=== PATIENT | male | born 1955 | race Caucasian/White ===

== ENCOUNTER 2016-06-18 12:55 | Emergency (ER) | payer SELFPAY ==
[~2016-06-18] VITALS: Ht 180.3 cm; Wt 78.0 kg
[2016-06-18 12:58] VITALS: BP 178/82; PULSE 78; RESP 16; TEMP 97.9; O2SAT 96
--- NOTE | 2016-06-18 13:22 | PD ---
HPI Chief Complaint: Headache Time Seen by Provider: 13:20 Travel History International Travel<30 days: No Contact w/Intl Traveler<30days: No Traveled to known affect area: No History of Present Illness HPI 60 -year-old male presents to the emergency department for evaluation of intermittent headaches that started this morning. He states he will get a sharp pain on each side of his head that'll last for seconds. He states the pain has brought him to his knees. He states that it comes and goes. She reports approximately 6 episodes this morning. He has no current pain. He denies any chest pain or shortness of breath. No abdominal pain. No vomiting. He denies any weakness or syncope. Patient denies history of headaches. He does report a history of esophageal cancer and lymphoma, but is in remission. He only takes Flomax for BPH. He denies any other complaints. He denies any seizure activity. PFSH Past Medical History Chemotherapy: Yes (esophageal cancer/lymphoma) Social History Alcohol Use: No Tobacco Use: No Substance Use: No Allergies-Medications (Allergen,Severity, Reaction): Coded Allergies: No Known Allergies (Unverified , 06/18/16) Reported Meds & Prescriptions Reported Meds & Active Scripts Active Reported Flomax (Tamsulosin HCl) 0.4 Mg Cap 0.4 Mg PO HS Review of Systems Except as stated in HPI: all other systems reviewed are Neg Physical Exam Narrative GENERAL: Well-developed well-nourished male patient, ambulatory and in no acute distress. Afebrile. SKIN: Warm and dry. HEAD: Normocephalic. Atraumatic. ENT: Mucosa pink and moist. No erythema or exudates. No uvular edema. No uvular , palatal, or tonsillar deviation. Airway patent. Nasal turbinates appear normal without nasal blood, purulent drainage or septal hematoma. Bilateral tympanic membranes are clear without erythema or perforation. EYES: No scleral icterus. No injection or drainage. NECK: Supple, trachea midline. No JVD or lymphadenopathy. CARDIOVASCULAR: Regular rate and rhythm without murmurs, gallops, or rubs. RESPIRATORY: Breath sounds equal bilaterally. No accessory muscle use. Lungs sounds clear to auscultation. GASTROINTESTINAL: Abdomen soft, non-tender, nondistended. MUSCULOSKELETAL: No cyanosis, or edema. Bilateral upper and lower extremity strength 5/5. All extremities are neurovascularly intact. BACK: Nontender without obvious deformity. No CVA tenderness. NEUROLOGICAL: Awake and alert. Cranial nerves II through XII intact. Motor and sensory grossly within normal limits. Five out of 5 muscle strength in all muscle groups. Normal speech. Finger to nose is normal bilaterally. Heel-to- knowles is normal bilaterally. Patient is ambulatory with a steady gait. Data Data Last Documented VS Vital Signs Date Time Temp Pulse Resp B/P Pulse Ox O2 Delivery O2 Flow Rate FiO2 06/18/16 13:31 Room Air 06/18/16 12:58 97.9 78 16 178/[address] Brain W/O Iv Contrast(Rout) (06/18/16 ) Complete Blood Count With Diff (06/18/16 13:17) Basic Metabolic Panel (Bmp) (06/18/16 13:17) Iv Access Insert/Monitor (06/18/16 13:17) Sodium Chloride 0.9% Flush (Ns Flush) (06/18/16 13:30) Ketorolac Inj (Toradol Inj) (06/18/16 15:30) Labs Laboratory Tests Test 06/18/16 13:25 White Blood Count 9.2 TH/MM3 Red Blood Count 5.33 MIL/MM3 Hemoglobin 14.2 GM/DL Hematocrit 43.2 % Mean Corpuscular Volume 81.1 FL Mean Corpuscular Hemoglobin 26.7 PG Mean Corpuscular Hemoglobin 32.9 % Concent Red Cell Distribution Width 14.8 % Platelet Count 212 TH/MM3 Mean Platelet Volume 9.3 FL Neutrophils (%) (Auto) 70.0 % Lymphocytes (%) (Auto) 16.4 % Monocytes (%) (Auto) 9.3 % Eosinophils (%) (Auto) 3.6 % Basophils (%) (Auto) 0.7 % Neutrophils # (Auto) 6.5 TH/MM3 Lymphocytes # (Auto) 1.5 TH/MM3 Monocytes # (Auto) 0.9 TH/MM3 Eosinophils # (Auto) 0.3 TH/MM3 Basophils # (Auto) 0.1 TH/MM3 CBC Comment DIFF FINAL Differential Comment Sodium Level 138 MEQ/L Potassium Level 3.8 MEQ/L Chloride Level 102 MEQ/L Carbon Dioxide Level 31.6 MEQ/L Anion Gap 4 MEQ/L Blood Urea Nitrogen 16 MG/DL Creatinine 1.16 MG/DL Estimat Glomerular Filtration 64 ML/MIN Rate Random Glucose 94 MG/DL Calcium Level 9.0 MG/DL MDM Medical Decision Making Medical Screen Exam Complete: Yes Emergency Medical Condition: Yes Medical Record Reviewed: Yes Interpretation(s) Last Impressions Head CT 06/18/16 0000 Signed Impressions: Service Date/Time: Saturday, June 18, 2016 14:57 - CONCLUSION: Normal examination for a patient of this age. Tha Montgomery MD Differential Diagnosis Tension-type headache versus cluster headache versus migraine headache versus intracranial abnormality versus electrolyte abnormality Narrative Course 60-year-old male presents to the emergency department for evaluation of intermittent headaches that started this morning. He is currently pain-free. Physical exam shows no focal deficits. CBC, BMP are ordered and pending. CT of the brain is ordered and pending. EKG was done by RN which shows no acute ST changes. CBC is unremarkable. BMP is unremarkable. Ct of the brain is normal. Patient is instructed to follow up with his primary care physician. He is to return for any acute, worsening of symptoms. Diagnosis Primary Impression: Headache Qualified Code: R51 - Acute nonintractable headache, unspecified headache type Referrals: Primary Care Physician call for appointment Patient Instructions: Acute Headache (ED), General Instructions Additional Instructions: Follow-up with your primary care physician. Return to the emergency department for any acute worsening of symptoms. Med/Other Pt SpecificInfo: No Change to Meds Disposition: 01 DISCHARGE HOME Condition: Stable Toyin JoseP Jun 18, 2016 13:22
[2016-06-18] MEDS ORDERED: SODIUM CHLORIDE 0.9% FLUSH 5 ML FLUSH IVF PRN (13:30)
[2016-06-18] MEDS ORDERED: TAMS5CAP PO (13:38)
[2016-06-18 13:47] LABS: AUTOMATED NEUTROPHIL # 6.5 TH/MM3 (1.8-7.7); BASOPHIL # 0.1 TH/MM3 (0-0.2); BASOPHIL % 0.7 % (0.0-2.0); EOSINOPHIL # 0.3 TH/MM3 (0-0.4); EOSINOPHIL % 3.6 % (0.0-4.0); HEMATOCRIT 43.2 % (39.0-51.0); HEMO FLAGS DIFF FINAL; LYMPH % 16.4 % (9.0-44.0); LYMPHOCYTE # 1.5 TH/MM3 (1.0-4.8); MEAN CELL VOLUME 81.1 FL (80.0-100.0); MEAN CORPUSCULAR HEMOGLOBIN 26.7 PG (27.0-34.0); MEAN CORPUSCULAR HGB CONC 32.9 % (32.0-36.0); MONO % 9.3 % (0.0-8.0); PLATELET COUNT 212 TH/MM3 (150-450); RED BLOOD COUNT 5.33 MIL/MM3 (4.50-5.90); RED CELL DISTRIBUTION WIDTH 14.8 % (11.6-17.2); WHITE BLOOD COUNT 9.2 TH/MM3 (4.0-11.0)
[2016-06-18 14:03] LABS: BICARBONATE 31.6 MEQ/L (21.0-32.0); POTASSIUM 3.8 MEQ/L (3.5-5.1)
[2016-06-18 15:00] VITALS: BP 171/86; PULSE 68; RESP 19; O2SAT 68; O2SAT 98
--- NOTE | 2016-06-18 15:24 | RADRPT ---
EXAM DATE/TIME: 06/18/2016 14:57 [facility] COMPARISON: No previous studies available for comparison. INDICATIONS : Headaches with dizziness. RADIATION DOSE: 56.35 CTDIvol (mGy) MEDICAL HISTORY : Carcinoma, esophageal. Lymphoma. SURGICAL HISTORY : None. ENCOUNTER: Initial ACUITY: 1 day PAIN SCALE: 7/10 LOCATION: Bilateral cranial TECHNIQUE: Multiple contiguous axial images were obtained of the head. Using automated exposure control and adj ustment of the mA and/or kV according to patient size, radiation dose was kept as low as reasonably a chievable to obtain optimal diagnostic quality images. FINDINGS: CEREBRUM: The ventricles are normal for age. No evidence of midline shift, mass lesion, hemorrhage or acute in farction. No extra-axial fluid collections are seen. POSTERIOR FOSSA: The cerebellum and brainstem are intact. The 4th ventricle is midline. The cerebellopontine angle i s unremarkable. EXTRACRANIAL: The visualized portion of the orbits is intact. SKULL: The calvaria is intact. No evidence of skull fracture. CONCLUSION: Normal examination for a patient of this age. Tha Montgomery MD on June 18, 2016 at 15:21 Board Certified Radiologist. This report was verified electronically.
[2016-06-18] MEDS ORDERED: KETOROLAC TROMETHAMINE 30 MG/ML (IVP) VIAL IV PUSH ONE (15:30)
--- NOTE | 2016-06-19 11:43 | EKG ---
Date Performed: 06/18/2016 Time Performed: 13:22:46 PTAGE: 60 years EKG: Sinus rhythm RIGHT BUNDLE BRANCH BLOCK ABNORMAL ECG NO PREVIOUS TRACING DOCTOR: Robin Esparza Interpretating Date/Time 06/19/2016 11:43:08
== END 2016-06-18 16:02 | disposition home or self-care (01) ==
LOC: NEPC 12:55
DX: R51 Headache (principal); I45.10 Unspecified right bundle-branch block; Z85.01 Personal history of malignant neoplasm of esophagus; Z85.72 Personal history of non-Hodgkin lymphomas
CPT/HCPCS: 70450; 80048; 85025; 93005; 96374; 99284; J1885